=== PATIENT | female | born 1950 | race Caucasian/White ===

== ENCOUNTER 2019-12-15 06:58 | Day surgery (SDC) | payer MEDICARE, OTHER ==
[2019-12-15] MEDS ORDERED: PROPOFOL INJ 200 MG/20 ML VIAL IV ONE (07:17)
--- NOTE | 2019-12-15 08:47 | Operative Report ---
Operative Report DATE OF SURGERY: 12/15/19 Operative Report: The risks benefits and alternatives of the procedure explained to the patient in detail and informed consent is obtained .A GIF Olympus video scope was inserted into the patient's mouth and hypopharynx, the esophagus is identified intubated and insufflated, the scope was then advanced through the esophagus stomach and duodenum, retroflexion maneuver is done, the esophagus stomach and first and second portions of the duodenum examined PREOPERATIVE DIAGNOSIS: Previous history of iron deficiency anemia. Isbell's esophagus POSTOPERATIVE DIAGNOSIS: Isbell's esophagus status post ablation. Hiatal hernia. Gastritis. Gastric antral vascular ectasias probably explaining the patient's iron deficiency anemia. These were ablated prophylactically OPERATION: EGD with radiofrequency ablation of both Isbell's esophagus and gastric antral vascular ectasias SURGEON: MICHAEL CULP ANESTHESIA: LMAC TISSUE REMOVED OR ALTERED: As noted above. COMPLICATIONS: None. ESTIMATED BLOOD LOSS: None. INTRAOPERATIVE FINDINGS: As noted above. PROCEDURE: Patient tolerated the procedure well. No immediate postprocedure complications are noted. Patient is discharged in good condition. Discharge date 12/15/2019. Discharge diet: Regular. Discharge activity: Regular. 2 to 3-week follow-up to discuss findings. Patient is instructed to call the office or proceed to the emergency room should there be any further problems or questions. Wait on the pathology.
[2019-12-15 13:40] VITALS: BP 129/54
== END 2019-12-15 09:20 | disposition home or self-care (01) ==
LOC: END 06:58
PROVIDERS: ATTEND Internal Medicine Gastroenterology
DX: K22.719 Barrett's esophagus with dysplasia, unspecified (principal); K31.819 Angiodysplasia of stomach and duodenum without bleeding; K29.50 Unspecified chronic gastritis without bleeding; K44.9 Diaphragmatic hernia without obstruction or gangrene; D50.9 Iron deficiency anemia, unspecified; F32.9 Major depressive disorder, single episode, unspecified; I10 Essential (primary) hypertension; M81.0 Age-related osteoporosis without current pathological fracture; I73.00 Raynaud's syndrome without gangrene; M34.9 Systemic sclerosis, unspecified; Z79.899 Other long term (current) drug therapy; Z03.818 Encounter for observation for suspected exposure to other biological agents ruled out; Z90.49 Acquired absence of other specified parts of digestive tract
CPT/HCPCS: 43270; 43239; 88342 ×2; 88305 ×2; 00731; U0003; J2704; C9803; 731; 87635

== ENCOUNTER → 2019-12-16 | Outpatient (CLI) | payer MEDICARE, OTHER ==
--- NOTE | 2019-12-29 11:50 | WOMENS IMAGING REPORT ---
EXAM DESCRIPTION: BILAT SCREENING MAMMO W/CAD IMAGES COMPLETED DATE/TIME: 12/16/2019 2:49 pm REASON FOR STUDY: Z12.31 ENCOUNTER FOR SCREENING MAMMOGRAM FOR MALIGNANT NEOPLASM OF BREAST Z87.891 PERSONAL HISTORY OF NICOTINE DEPENDENCE Z12.31 ENCNTR SCREEN MAMMOGRAM FOR MALIGNANT NEOPLASM OF BR E COMPARISON: Requested but never received. EXAM PARAMETERS: Standard craniocaudal and mediolateral oblique views of each breast recorded using digital acquisition. Read with the assistance of CAD. 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 FINDINGS: No suspicious masses, suspicious calcifications or architectural distortion. No areas of c oncern. IMPRESSION: NEGATIVE MAMMOGRAM. BIRADS 1 BREAST DENSITY: b. There are scattered areas of fibroglandular density. BIRAD: ASSESSMENT: 1 NEGATIVE RECOMMENDATION: ROUTINE SCREENING COMMENT: The patient has been notified of the results by letter per MQSA requirements. Additional no tification policies are in place for contacting patient with suspicious or incomplete findings. Quality ID #[id number]: The [employer] recommends an annual screening mammogram for women aged 40 years or over. This facility utilizes a reminder system to ensure that all patients receive reminder letters, and/or direct phone calls for appointments. This includes reminders for routine scr eening mammograms, diagnostic mammograms, or other Breast Imaging Interventions when appropriate. Th is patient will be placed in the appropriate reminder system. TECHNICAL DOCUMENTATION: FINDING NUMBER: (1) ASSESSMENT: (1) JOB ID: [id number] 2010 [employer]- All Rights Reserved Reading location - IP/workstation name: [email or web address]
== END ==
LOC: RAD 14:23
PROVIDERS: ATTEND Family Medicine
DX: Z12.31 Encounter for screening mammogram for malignant neoplasm of breast (principal); Z87.891 Personal history of nicotine dependence
CPT/HCPCS: 77067

== ENCOUNTER 2020-02-22 11:17 | Emergency (ER) | payer MEDICARE, OTHER ==
[2020-02-22 11:27] VITALS: BP 168/85
[2020-02-22] MEDS ORDERED: ONDANSETRON 4 MG TAB.RAPDIS PO ONE (12:08)
[2020-02-22] MEDS ORDERED: MECLIZINE HCL 25 MG TABLET PO ONE ×2 (12:08→16:34)
--- NOTE | 2020-02-22 12:11 | ER Document Report ---
ED Medical Screen (RME) - General Chief Complaint: Vomiting Stated Complaint: VOMITING,DIZZINESS Time Seen by Provider: 02/22/20 12:08 Primary Care Provider: MAT BARRERA MD [Primary Care Provider] - Follow up as needed Notes: 69-year-old female chief complaint of waking up this morning with dizziness, she states when she stood she was spinning around, felt very nauseated, vomited multiple times as a result. She states she still cannot stand up without stumbling and getting nauseated. She states she is starting to get a headache as well. She denies chest pain, abdominal pain, fever, head injury, recent illness. She is not on a blood thinner. She comes from home. - Related Data Allergies/Adverse Reactions: No Known Allergies Allergy (Verified 12/15/19 08:04) Past Medical History - Past Medical History Cardiac Medical History: Reports: Hx Hypertension Denies: Hx Coronary Artery Disease, Hx Heart Attack Pulmonary Medical History: Denies: Hx Asthma, Hx Bronchitis, Hx COPD, Hx Pneumonia Neurological Medical History: Denies: Hx Seizures Musculoskeltal Medical History: Reports Hx Arthritis - Immunizations Hx Diphtheria, Pertussis, Tetanus Vaccination: Yes Physical Exam - Vital signs Vitals: Temp Pulse Resp BP Pulse Ox 97.4 F 56 L 22 H 168/85 H 92 02/22/20 11:23 02/22/20 11:23 02/22/20 11:23 02/22/20 11:23 02/22/20 11:23 - General General appearance: Appears well In distress: None - Neurological Cognition: Normal Orientation: AAOx4 Ansley Coma Scale Eye Opening: Spontaneous Jay Coma Scale Verbal: Oriented Jay Coma Scale Motor: Obeys Commands Ansley Coma Scale Total: 15 Speech: Normal Cranial nerves: Normal Cerebellar coordination: Other - Attempted to stand and became unsteady Motor strength normal: LUE, RUE, LLE, RLE Course - Re-evaluation Re-evalutation: 02/22/20 12:10 Evaluation most consistent with vertigo symptoms causing nausea and vomiting. Giving medication, work-up pending. Oxygen saturation only reading at 92% and is difficult to cherry picker operator, I believe this is secondary to patient's Raynaud's. I have greeted and performed a rapid initial assessment of this patient. A comprehensive ED assessment and evaluation of the patient, analysis of test results and completion of the medical decision making process will be conducted by additional ED providers. - Vital Signs Vital signs: Temp Pulse Resp BP Pulse Ox 97.4 F 56 L 22 H 168/85 H 92 02/22/20 11:23 02/22/20 11:23 02/22/20 11:23 02/22/20 11:23 02/22/20 11:23 Doctor's Discharge - Discharge Referrals: MAT BARRERA MD [Primary Care Provider] - Follow up as needed
--- NOTE | 2020-02-22 13:01 | RADIOLOGY REPORT (SQ) ---
EXAM DESCRIPTION: CT HEAD WITHOUT IMAGES COMPLETED DATE/TIME: 02/22/2020 12:51 pm REASON FOR STUDY: dizzy, vomiting, headache, ataxia COMPARISON: None. TECHNIQUE: Axial images acquired through the brain without intravenous contrast. Images reviewed wi th bone, brain and subdural windows. Additional sagittal and coronal reconstructions were generated. Images stored on PACS. All CT scanners at this facility use dose modulation, iterative reconstruction, and/or weight based d osing when appropriate to reduce radiation dose to as low as reasonably achievable (ALARA). [facility]: Dose Right [facility]: CareDose [facility]: Dose Right [facility]: Teradose 4D [facility]: copygram RADIATION DOSE: CT Rad equipment meets quality standard of care and radiation dose reduction techniq ues were employed. CTDIvol: 48.9 mGy. DLP: 935 mGy-cm. mGy. LIMITATIONS: None. FINDINGS: VENTRICLES: Prominent. CEREBRUM: No masses. No hemorrhage. No midline shift. Areas of low density in the white matter mos t likely due to chronic micro-vascular ischemic change. No evidence for acute infarction. CEREBELLUM: No masses. No hemorrhage. No alteration of density. No evidence for acute infarction. EXTRAAXIAL SPACES: Mild age-related involutional change. No fluid collections. No masses. ORBITS AND GLOBE: No intra- or extraconal masses. Normal contour of globe without masses. CALVARIUM: No fracture. PARANASAL SINUSES: No fluid or mucosal thickening. SOFT TISSUES: No mass or hematoma. OTHER: No other significant finding. IMPRESSION: MILD CHRONIC CHANGES OF ATROPHY AND MICROVASCULAR ISCHEMIA. NO ACUTE PROCESS. EVIDENCE OF ACUTE STROKE: NO. TECHNICAL DOCUMENTATION: JOB ID: [id number] Quality ID # [id number]: Final reports with documentation of one or more dose reduction techniques (e.g., Au tomated exposure control, adjustment of the mA and/or kV according to patient size, use of iterative reconstruction technique) 2010 [employer]- All Rights Reserved Reading location - IP/workstation name: [email or web address]
--- NOTE | 2020-02-22 13:16 | RADIOLOGY REPORT (SQ) ---
EXAM DESCRIPTION: CHEST SINGLE VIEW IMAGES COMPLETED DATE/TIME: 02/22/2020 1:03 pm REASON FOR STUDY: weakness COMPARISON: None. EXAM PARAMETERS: NUMBER OF VIEWS: One view. TECHNIQUE: Single frontal radiographic view of the chest acquired. RADIATION DOSE: NA LIMITATIONS: None. FINDINGS: LUNGS AND PLEURA: No opacities, masses or pneumothorax. No pleural effusion. MEDIASTINUM AND HILAR STRUCTURES: No masses. Contour normal. HEART AND VASCULAR STRUCTURES: Heart normal in size. Normal vasculature. BONES: No acute findings. HARDWARE: None in the chest. OTHER: No other significant finding. IMPRESSION: NO ACUTE RADIOGRAPHIC FINDING IN THE CHEST. TECHNICAL DOCUMENTATION: JOB ID: [id number] 2010 [employer]- All Rights Reserved Reading location - IP/workstation name: [email or web address]
[2020-02-22 13:50] LABS: ABSOLUTE LYMPHOCYTES (AUTO) 0.6 10^3/uL (0.5-4.7); ABSOLUTE MONOCYTES (AUTO) 0.2 10^3/uL (0.1-1.4); BASOPHILS % (AUTO) 0.6 % (0-2); EOSINOPHILS % (AUTO) 0.5 % (0-6); HEMATOCRIT 35.2 % (36.0-47.0); HEMOGLOBIN 11.8 g/dL (12.0-15.5); LYMPHOCYTES % (AUTO) 12.6 % (13-45); MEAN CORPUSCULAR HEMOGLOBIN 30.4 pg (27.0-33.4); MEAN CORPUSCULAR HGB CONC 33.6 g/dL (32.0-36.0); MEAN CORPUSCULAR VOLUME 91 fl (80-97); MONOCYTES % (AUTO) 4.9 % (3-13); PLATELET COUNT 216 10^3/uL (150-450); RED BLOOD COUNT 3.89 10^6/uL (3.72-5.28); RED CELL DISTRIBUTION WIDTH 13.4 % (11.5-14.0); SEGMENTED NEUTROPHILS % (AUTO) 81.4 % (42-78); TOTAL CELLS COUNTED % (AUTO) 100 %
[2020-02-22 13:54] LABS: APPEARANCE,URINE CLEAR; BILIRUBIN,URINE NEGATIVE (NEGATIVE); COLOR,URINE YELLOW; GLUCOSE, URINE NEGATIVE (NEGATIVE); KETONES,URINE NEGATIVE (NEGATIVE); LEUKOCYTE ESTERASE,URINE NEGATIVE (NEGATIVE); NITRITE,URINE NEGATIVE (NEGATIVE); PROTEIN,URINE NEGATIVE (NEGATIVE); URINE SPECIFIC GRAVITY 1.013; UROBILINOGEN,URINE NEGATIVE mg/dL (<2.0)
[2020-02-22 14:04] LABS: ALBUMIN 3.8 g/dL (3.5-5.0); ALKALINE PHOSPHATASE 99 U/L (38-126); ASPARTATE AMINO TRANSFERASE 35 U/L (14-36); BILIRUBIN,DIRECT 0.2 mg/dL (0.0-0.4); BILIRUBIN,TOTAL 0.4 mg/dL (0.2-1.3); BLOOD UREA NITROGEN 18 mg/dL (7-20); GLUCOSE 142 mg/dL (75-110); POTASSIUM 3.9 mmol/L (3.6-5.0)
[2020-02-22 14:10] LABS: ANION GAP 6 (5-19); CARBON DIOXIDE 24 mmol/L (22-30); CHLORIDE 108 mmol/L (98-107)
[2020-02-22] MEDS ORDERED: ONDANSETRON ODT 4 MG TAB (6 TAB/ER DISP) PO PRN (16:35)
--- NOTE | 2020-02-22 16:39 | ER Document Report ---
ED General - General Chief Complaint: Dizziness Stated Complaint: VOMITING,DIZZINESS Time Seen by Provider: 02/22/20 12:08 Primary Care Provider: MAT BARRERA MD [Primary Care Provider] - Follow up in 3-5 days Notes: Patient is a 69-year-old female that comes to the Emergency Department with chief complaint of waking up this morning with dizziness, she states when she stood she was spinning around, felt very nauseated, vomited twice as a result. She states she still cannot stand up without stumbling and getting nauseated. She states she is starting to get a headache as well. She denies chest pain, abdominal pain, fever, head injury, recent illness. She is not on a blood thinner. She comes from home. - Related Data Allergies/Adverse Reactions: No Known Allergies Allergy (Verified 02/22/20 16:44) Home Medications: ativan 0.5 mg bid prn, lisinopril 20 mg daily,ursobial 500mg bid, pantropazole 40mg bid, ferrex 150mg bid, citalopram 40 mg daily, calcium 600mg bid, vitamin c daily Past Medical History - General Information source: Patient - Social History Smoking Status: Former Smoker Chew tobacco use (# tins/day): No Frequency of alcohol use: Social Drug Abuse: None Lives with: Family Family History: Reviewed & Not Pertinent - Past Medical History Cardiac Medical History: Reports: Hx Hypertension Denies: Hx Coronary Artery Disease, Hx Heart Attack Pulmonary Medical History: Denies: Hx Asthma, Hx Bronchitis, Hx COPD, Hx Pneumonia Neurological Medical History: Denies: Hx Seizures Musculoskeletal Medical History: Reports Hx Arthritis - Immunizations Hx Diphtheria, Pertussis, Tetanus Vaccination: Yes Review of Systems - Review of Systems Constitutional: See HPI EENT: See HPI Cardiovascular: No symptoms reported Respiratory: No symptoms reported Gastrointestinal: No symptoms reported Genitourinary: No symptoms reported Female Genitourinary: No symptoms reported Musculoskeletal: No symptoms reported Skin: No symptoms reported Hematologic/Lymphatic: No symptoms reported Neurological/Psychological: See HPI Physical Exam - Vital signs Vitals: Temp Pulse Resp BP Pulse Ox 97.4 F 56 L 22 H 168/85 H 92 02/22/20 11:23 02/22/20 11:23 02/22/20 11:23 02/22/20 11:23 02/22/20 11:23 - Notes Notes: GENERAL: Alert, interacts well. No acute distress. HEAD: Normocephalic, atraumatic. EYES: Pupils equal, round, and reactive to light. Extraocular movements intact. No noted nystagmus. ENT: Oral mucosa moist, tongue midline. Oropharynx unremarkable. Airway patent. Nares patent, sinuses non-tender, ear canals unremarkable, TM's intact. NECK: Full range of motion. Supple. Trachea midline. No lymphadenopathy. LUNGS: Clear to auscultation bilaterally, no wheezes, rales, or rhonchi. No respiratory distress. Non-tender chest wall. HEART: Regular rate and rhythm. No murmur ABDOMEN: Soft, non-tender. Non-distended. EXTREMITIES: Moves all 4 extremities spontaneously. No edema, normal radial and dorsalis pedis pulses bilaterally. No cyanosis. BACK: no cervical, thoracic, lumbar midline tenderness. No saddle anesthesia, normal distal neurovascular exam. Moves all extremities in full range of motion. NEUROLOGICAL: Alert and oriented x3. Normal speech. Cranial nerves II through XII grossly intact. Strength 5/5 in all extremities. PSYCH: Normal affect, normal mood. SKIN: Warm, dry, normal turgor. No rashes or lesions noted. Course - Re-evaluation Re-evalutation: 02/22/20 16:30 On revaluation patient is much improved. Nausea resolved, tolerating p.o. without difficulty, she now can stand and ambulate without difficulty after the meclizine. CT of the head negative, work-up negative, vital signs unremarkable, physical exam unremarkable now. Very strongly suspect labyrinthitis as the cause of her symptoms based on her clinical picture. Discussed results in detail, expectations, follow-up, return precautions. Patient states appreciation and agreement. Stable and well-appearing at time of discharge. - Vital Signs Vital signs: Temp Pulse Resp BP Pulse Ox 97.4 F 56 L 18 168/85 H 94 02/22/20 11:23 02/22/20 16:37 02/22/20 16:37 02/22/20 16:37 02/22/20 16:37 - Laboratory Results Result Diagrams: 02/22/20 13:29 02/22/20 13:29 Laboratory Results Interpreted: 02/22/20 02/22/20 02/22/20 13:29 13:29 13:29 Hgb 11.8 L Hct 35.2 L Lymph % (Auto) 12.6 L Seg Neutrophils % 81.4 H Chloride 108 H Glucose 142 H Urine Ascorbic Acid 20 H Critical Laboratory Results Reviewed: No Critical Results - Radiology Results Critical Radiology Results Reviewed: No Critical Results Discharge - Discharge Clinical Impression: Dizziness, Vertigo Vomiting Qualifiers: Vomiting type: unspecified Vomiting Intractability: non-intractable Nausea presence: with nausea Qualified Code(s): R11.2 - Nausea with vomiting, unspecified Condition: Stable Disposition: HOME, SELF-CARE Additional Instructions: Your evaluation is most consistent with vestibular neuritis, a temporary abnormality in the inner ear causing vertigo. The CAT scan does not show any concerning findings, your remaining work-up and evaluation do not show any concerning findings. Take the meclizine as prescribed, take Zofran if needed for nausea, symptoms should simply resolve with time. Follow-up with primary care for additional management. Return if you worsen including headache, persistent vomiting, fever, or any other concerning or worsening symptoms. Prescriptions: Meclizine HCl [Antivert 25 mg Tablet] 25 mg PO TID 7 Days #21 tablet Ondansetron [Zofran Odt 4 mg Tablet] 1 - 2 tab PO Q4H PRN #15 tab.rapdis PRN Reason: For Nausea/Vomiting Referrals: MAT BARRERA MD [Primary Care Provider] - Follow up in 3-5 days
== END 2020-02-22 17:02 | disposition home or self-care (01) ==
LOC: ER 11:17
DX: R42 Dizziness and giddiness (principal); R11.2 Nausea with vomiting, unspecified; R51.9 Headache, unspecified; I10 Essential (primary) hypertension; Z79.899 Other long term (current) drug therapy; Z87.891 Personal history of nicotine dependence
CPT/HCPCS: 99285; 36415; 85025; 80053; 81001; 71045; 70450; A9270 ×3; S0119